=== PATIENT | female | born 1960 | race Caucasian/White ===

== ENCOUNTER 2020-02-26 12:30 | Emergency (ER) | payer MEDICAID ==
--- NOTE | 2020-02-26 12:55 | ER Document Report ---
ED Medical Screen (RME) - General Chief Complaint: Chest Pain Stated Complaint: CHEST PAIN Time Seen by Provider: 02/26/20 12:53 Mode of Arrival: Wheelchair Information source: Patient Notes: 59-year-old female presented to ED for complaint of chest pain. She states that is been going on for 4 days. She states she was diagnosed in September with CHF and had some stents placed. She states there were still other clogs but they told her that they did not need to be stented at this time. She states she is on Brilinta as a blood thinner. She does continue to smoke 1/2 pack a day no drugs or alcohol. Patient is alert oriented respirations regular and unlabored speaking in full sentences. I have greeted and performed a rapid initial assessment of this patient. A comprehensive ED assessment and evaluation of the patient, analysis of test results and completion of medical decision making process will be conducted by an additional ED providers.
--- NOTE | 2020-02-26 13:25 | RADIOLOGY REPORT (SQ) ---
EXAM DESCRIPTION: CHEST SINGLE VIEW IMAGES COMPLETED DATE/TIME: 02/26/2020 1:14 pm REASON FOR STUDY: Chest pain COMPARISON: None. EXAM PARAMETERS: NUMBER OF VIEWS: One view. TECHNIQUE: Single frontal radiographic view of the chest acquired. RADIATION DOSE: NA LIMITATIONS: None. FINDINGS: LUNGS AND PLEURA: No opacities, masses or pneumothorax. No pleural effusion. MEDIASTINUM AND HILAR STRUCTURES: No masses. Contour normal. HEART AND VASCULAR STRUCTURES: Heart normal in size. Normal vasculature. BONES: No acute findings. HARDWARE: None in the chest. OTHER: No other significant finding. IMPRESSION: 1. NO ACUTE RADIOGRAPHIC FINDING IN THE CHEST. TECHNICAL DOCUMENTATION: JOB ID: [id number] 2010 [employer]- All Rights Reserved Reading location - IP/workstation name: [email or web address]
[2020-02-26 13:39] LABS: ABSOLUTE BASOPHILS # (AUTO) 0.1 10^3/uL (0.0-0.2); ABSOLUTE EOSINOPHILS # (AUTO) 0.3 10^3/uL (0.0-0.6); ABSOLUTE LYMPHOCYTES (AUTO) 2.9 10^3/uL (0.5-4.7); ABSOLUTE MONOCYTES (AUTO) 0.7 10^3/uL (0.1-1.4); ABSOLUTE NEUT (AUTO) 8.8 10^3/uL (1.7-8.2); BASOPHILS % (AUTO) 0.7 % (0-2); EOSINOPHILS % (AUTO) 2.1 % (0-6); HEMOGLOBIN 16.6 g/dL (12.0-15.5); LYMPHOCYTES % (AUTO) 22.5 % (13-45); MEAN CORPUSCULAR HGB CONC 34.7 g/dL (32.0-36.0); MEAN CORPUSCULAR VOLUME 89 fl (80-97); MONOCYTES % (AUTO) 5.5 % (3-13); PLATELET COUNT 311 10^3/uL (150-450); RED BLOOD COUNT 5.37 10^6/uL (3.72-5.28); RED CELL DISTRIBUTION WIDTH 14.2 % (11.5-14.0); SEGMENTED NEUTROPHILS % (AUTO) 69.2 % (42-78); TOTAL CELLS COUNTED % (AUTO) 100 %; WHITE BLOOD COUNT 12.7 10^3/uL (4.0-10.5)
[2020-02-26 13:59] LABS: ALBUMIN 4.8 g/dL (3.5-5.0); ALKALINE PHOSPHATASE 87 U/L (38-126); ANION GAP 9 (5-19); ASPARTATE AMINO TRANSFERASE 32 U/L (14-36); BILIRUBIN,DIRECT 0.1 mg/dL (0.0-0.4); BILIRUBIN,TOTAL 0.7 mg/dL (0.2-1.3); BLOOD UREA NITROGEN 17 mg/dL (7-20); CARBON DIOXIDE 26 mmol/L (22-30); CHLORIDE 104 mmol/L (98-107); GLUCOSE 110 mg/dL (75-110); POTASSIUM 4.2 mmol/L (3.6-5.0); TOTAL PROTEIN 8.1 g/dL (6.3-8.2)
[2020-02-26 14:21] LABS: TROPONIN I 0.262 ng/mL
[2020-02-26] MEDS ORDERED: FAMOTIDINE INJ/PF 20 MG/2 ML SDV IV ONE (14:37)
[2020-02-26] MEDS ORDERED: MAG HYDROX/AL HYDROX/SIMETH SUSP 30 ML UDCUP PO ONE ×2 (14:37→16:18)
[2020-02-26] MEDS ORDERED: LIDOCAINE 2% VISCOUS SOLN 15 ML UDCUP PO ONE ×2 (14:37→16:18)
[2020-02-26] MEDS ORDERED: HEPARIN SOD (PORCINE) 1,000 UNIT/ML 10 ML VIAL IV ONE (14:40)
[2020-02-26] MEDS ORDERED: HEPARIN SODIUM,PORCINE/D5W 25,000 UNIT/250 ML RTUINJ IV PRN (14:40)
[2020-02-26] MEDS ORDERED: NORMAL SALINE 1000 ML 1,000 ML IV ONE (14:42)
[2020-02-26 14:53] LABS: INTERNATIONAL RATION (INR) 0.91; PARTIAL THROMBOPLASTIN TIME 29.1 SEC (23.5-35.8); PROTHROMBIN TIME 12.2 SEC (11.4-15.4)
[2020-02-26] MEDS ORDERED: ASPIRIN 81 MG TABLET, CHEWABLE PO ONE (14:56)
[2020-02-26] MEDS ORDERED: NITROGLYCERIN 2% OINTMENT 1 GM PACKET TP ONE (14:59)
[2020-02-26] MEDS ORDERED: HEPARIN SOD (PORCINE) 1,000 UNIT/ML 10 ML VIAL IV PRN (17:41)
[2020-02-26] MEDS ORDERED: ATORVASTATIN CALCIUM 40 MG TABLET PO ONE (19:50)
--- NOTE | 2020-02-26 19:59 | EKG REPORT ---
SEVERITY:- ABNORMAL ECG - SINUS RHYTHM CONSIDER RIGHT VENTRICULAR HYPERTROPHY PROBABLE INFERIOR INFARCT, OLD BORDERLINE PROLONGED QT INTERVAL : Confirmed by: Jared Hendrix MD 26-Feb-2020 19:58:45
--- NOTE | 2020-02-26 19:59 | EKG REPORT ---
SEVERITY:- ABNORMAL ECG - SINUS RHYTHM PROBABLE LEFT ATRIAL ABNORMALITY LEFT ANTERIOR FASCICULAR BLOCK BORDERLINE R WAVE PROGRESSION, ANTERIOR LEADS NONSPECIFIC T ABNORMALITIES, ANT-LAT LEADS : Confirmed by: Jared Hendrix MD 26-Feb-2020 19:59:02
--- NOTE | 2020-02-26 20:01 | EKG REPORT ---
SEVERITY:- ABNORMAL ECG - SINUS TACHYCARDIA PROBABLE LEFT ATRIAL ABNORMALITY CONSIDER RVH W/ SECONDARY REPOL ABNORMALITY ST ELEVATION, PROBABLE INFERIOR INJURY LATERAL LEADS ARE ALSO INVOLVED : Confirmed by: Jared Hendrix MD 26-Feb-2020 19:59:44
[2020-02-26 20:26] LABS: APPEARANCE,URINE TURBID; BILIRUBIN,URINE NEGATIVE (NEGATIVE); COLOR,URINE YELLOW; GLUCOSE, URINE >=500 mg/dL (NEGATIVE); KETONES,URINE TRACE mg/dL (NEGATIVE); LEUKOCYTE ESTERASE,URINE NEGATIVE (NEGATIVE); NITRITE,URINE NEGATIVE (NEGATIVE); PROTEIN,URINE NEGATIVE (NEGATIVE); UROBILINOGEN,URINE NEGATIVE mg/dL (<2.0)
--- NOTE | 2020-02-27 00:56 | ER Document Report ---
ED Medical Screen (RME) - General Chief Complaint: Chest Pain Stated Complaint: CHEST PAIN Time Seen by Provider: 02/26/20 12:53 Mode of Arrival: Wheelchair Notes: 59-year-old female transferring [facility] for chest pain Troponins plateaued Reevaluated, heart rate 102 otherwise vitals normal and she is stable for transfer as of 12:55 AM - Related Data Allergies/Adverse Reactions: metronidazole [From Flagyl] Allergy (Verified 02/26/20 12:55) naproxen [From Naprosyn] Allergy (Verified 02/26/20 12:55) Penicillins Allergy (Verified 02/26/20 12:55) Past Medical History - Social History Chew tobacco use (# tins/day): No Frequency of alcohol use: Occasional Drug Abuse: None - Past Medical History Cardiac Medical History: Reports: Hx Congestive Heart Failure, Hx Heart Attack, Hx Hypertension Endocrine Medical History: Reports: Hx Diabetes Mellitus Type 2 Past Surgical History: Reports: Hx Cardiac Surgery - heart cath and stent, Hx Hysterectomy, Hx Tonsillectomy Physical Exam - Vital signs Vitals: Pulse Ox 98 02/26/20 12:30 Course - Vital Signs Vital signs: Temp Pulse Resp BP Pulse Ox 97.8 F 25 H 114/86 H 97 02/26/20 22:14 02/27/20 00:01 02/26/20 22:12 02/27/20 00:01 - Laboratory Result Diagrams: 02/26/20 13:20 02/26/20 13:20 Laboratory results interpreted by me: 02/26/20 02/26/20 02/26/20 13:20 13:20 13:20 WBC 12.7 H RBC 5.37 H Hgb 16.6 H Hct 48.0 H RDW 14.2 H Absolute Neuts (auto) 8.8 H APTT Creatine Kinase 142 H NT-Pro-B Natriuret Pep 986 H Urine Glucose (UA) Urine Ketones 02/26/20 02/26/20 16:15 21:36 WBC RBC Hgb Hct RDW Absolute Neuts (auto) APTT 42.2 H Creatine Kinase NT-Pro-B Natriuret Pep Urine Glucose (UA) >=500 H Urine Ketones TRACE H Doctor's Discharge - Discharge Clinical Impression: Non-ST elevation myocardial infarction (NSTEMI), GERD (gastroesophageal reflux disease)
[2020-02-27 01:23] VITALS: BP 134/83
== END 2020-02-27 01:23 | disposition short-term general hospital (02) ==
LOC: ER 12:30
DX: I21.4 Non-ST elevation (NSTEMI) myocardial infarction (principal); K21.9 Gastro-esophageal reflux disease without esophagitis; R07.9 Chest pain, unspecified; R00.0 Tachycardia, unspecified; Z88.8 Allergy status to other drugs, medicaments and biological substances; Z88.0 Allergy status to penicillin; I50.9 Heart failure, unspecified; I25.2 Old myocardial infarction; I11.0 Hypertensive heart disease with heart failure; E11.9 Type 2 diabetes mellitus without complications
CPT/HCPCS: 93005; 99285; 96361; 96374; 96375; 36415; 82553; 82550; 83735; 85025; 85610; 85730; 80053; 81001; 84484; 83880; 71045; 93010; J1644 ×2; J3490; J7030; S0028